=== PATIENT | female | born 1970 | race Caucasian/White ===

== ENCOUNTER 2018-03-26 09:59 | Outpatient (CLI) | payer OTHER ==
--- NOTE | 2018-03-26 12:01 | Mammography Report ---
BILATERAL DIAGNOSTIC MAMMOGRAPHY AND BILATERAL BREAST ULTRASOUND: 03/26/2018 HISTORY: Palpable lump anterior bilateral breasts. COMPARISON: 02/20/2016, 08/19/2015, 01/27/2015, 01/18/2015 and 09/17/2011. TECHNIQUE: Bilateral digital CC and MLO projections with additional implant displaced projections. FINDINGS: The breast tissue is heterogeneously dense. Compared to the prior studies, the patient has new bilateral breast implants. Faint nodular densities in both breasts are similar to previous. No suspicious microcalcifications, architectural distortion, skin thickening or other interval change. BILATERAL BREAST ULTRASOUND: TECHNIQUE: Real-time scanning by the assistant infant toddler teacher in the area of palpable abnormality with saved static images reviewed. FINDINGS: In the left breast 2:30 position anterior periareolar region is a 7 x 4 x 8 mm anechoic well-circumscribed lesion consistent with a cyst. This accounts for the palpable finding. In the right breast 9 o'clock periareolar anterior region is a 6 x 4 x 6 mm round anechoic lesion with posterior shadowing consistent with a cyst. This accounts for the palpable finding. IMPRESSION: BENIGN. BI-RADS CATEGORY 2 - BENIGN FINDING BILATERALLY. SUGGEST RETURN TO ROUTINE SCREENING IN 12 MONTHS. STANDARD QUALIFYING STATEMENTS: 1. This examination was reviewed with the aid of Computer-Aided Detection (CAD) . 2. A negative or benign imaging report should not delay biopsy if clinically suspicious findings are present. Consider surgical consultation if warranted. More than 5 % of cancers are not identified by imaging. 3. Dense breasts may obscure an underlying neoplasm. TD: 03/26/2018 11:16 REVISED: ORIG. SIGNED 03/26/2018@1311; ORDERS LINKED 05/05/18 JLMerle CRISTIAND
== END 2018-03-26 10:00 | disposition home or self-care (01) ==
LOC: DI 09:59
PROVIDERS: ATTEND Family Medicine
DX: N63.0 Unspecified lump in unspecified breast (principal); N64.89 Other specified disorders of breast; Z98.82 Breast implant status
CPT/HCPCS: 76642; 77066

== ENCOUNTER 2018-10-10 08:00 | Outpatient (CLI) | payer OTHER ==
[2018-10-16 08:24] LABS: H. PYLORIS ANTIGEN STL NEGATIVE (Negative)
== END 2018-10-10 23:59 | disposition home or self-care (01) ==
LOC: LAB 08:00
PROVIDERS: ATTEND Physician Assistant Medical
DX: R10.13 Epigastric pain (principal)
CPT/HCPCS: 87338

== ENCOUNTER 2019-12-15 14:01 | Outpatient (CLI) | payer BC | END 2019-12-15 14:02 | disposition home or self-care (01) | LOC: NS 14:01 | PROVIDERS: ATTEND Physician Assistant Medical | DX: Z71.3 Dietary counseling and surveillance (principal); K58.9 Irritable bowel syndrome, unspecified | CPT/HCPCS: 97802 ==

== ENCOUNTER 2021-01-11 12:52 | Outpatient (CLI) | payer OTHER ==
--- NOTE | 2021-01-12 07:47 | Mammography Report ---
BILATERAL DIGITAL SCREENING MAMMOGRAM WITH AUGMENTATION: 01/11/2021 CLINICAL: Routine screening. Comparison is made to exams dated: 03/26/2018 ultrasound, 03/26/2018 ultrasound, 03/26/2018 mammogram, 02/19 mammogram, 08/19/2015 mammogram, and 08/19/2015 ultrasound - [facility]. The tissue of both breasts is heterogeneously dense. This may lower the sensitivity of mammography. No significant masses, calcifications, or other findings are seen in either breast. There has been no significant interval change. IMPRESSION: NEGATIVE There is no mammographic evidence of malignancy. A 1 year screening mammogram is recommended. This exam was interpreted at Station ID: [id number]. NOTE: For mammograms, a report in lay terms will be sent to the patient. Approximately 15% of breast malignancies will not be visualized mammographically. In the management of a palpable breast mass, a negative mammogram must not discourage biopsy of a clinically suspicious lesion. Electronically Signed By: Nickolas Bolaños M.D., jr/carroll:01/11/2021 15:56:31 ACR BI-RADS Category 1: Negative 3341F PARENCHYMAL PATTERN: (D) - The breast(s) demonstrate(s) heterogeneously dense fibroglandular parenchy ma. BI-RADS CATEGORY: (1) - 1 RECOMMENDATION: (ANNUAL) - Recommend routine annual screening mammography. [id number] 1 year screening LATERALITY: (B)
== END 2021-01-11 12:53 | disposition home or self-care (01) ==
LOC: DI.N 12:52
DX: Z12.31 Encounter for screening mammogram for malignant neoplasm of breast (principal)

== ENCOUNTER 2021-08-09 09:00 | Outpatient (CLI) | payer OTHER | END 2021-08-09 23:59 | disposition home or self-care (01) | LOC: LAB.WCP 09:00 | PROVIDERS: ATTEND Physician Assistant Medical | DX: R05.9 Cough, unspecified (principal); Z20.822 Contact with and (suspected) exposure to COVID-19 ==

== ENCOUNTER 2021-08-09 09:37 | Outpatient (CLI) | payer OTHER ==
--- NOTE | 2021-08-09 10:35 | XRAY Report ---
PROCEDURE: Chest 2 View X-Ray INDICATIONS: COUGH TECHNIQUE: 2 view(s) of the chest. COMPARISON: None. FINDINGS: Surgical changes and devices: None. Lungs and pleura: No pleural effusions or pneumothorax. Lungs are clear. No consolidation. Mediastinum: Mediastinal contours are normal. Heart size is normal. Bones and chest wall: No suspicious bony abnormalities. Soft tissues appear unremarkable. IMPRESSION: No acute cardiopulmonary abnormality. Reviewed by: Mario John MD on 08/09/2021 10:34 AM PDT Approved by: Mario John MD on 08/09/2021 10:34 AM PDT Station ID: [id number]
== END 2021-08-09 09:38 | disposition home or self-care (01) ==
LOC: DI.N 09:37
PROVIDERS: ATTEND Physician Assistant Medical
DX: R05.9 Cough, unspecified (principal)

== ENCOUNTER 2021-12-11 15:15 | Outpatient (CLI) | payer OTHER ==
--- NOTE | 2021-12-11 16:17 | Ultrasound Report ---
PROCEDURE: Head or Neck Soft Tissue INDICATIONS: DYSPHAGIA TECHNIQUE: Real-time scanning was performed of the thyroid gland, with image documentation. COMPARISON: None. FINDINGS: Right: The right thyroid measures 5.4 x 1.5 x 1.9 cm. There is a right superior cystic nodule which measures 0.3 x 0.3 x 0.2 cm. Left: The left thyroid lobe measures 5.3 x 1.4 x 1.6 cm. There is a left superior 0.4 x 0.4 x 0.3 cm solid hypoechoic smoothly marginated nodule without echogenic foci. Isthmus: The isthmus measures 2 mm in diameter. IMPRESSION: Normal sonographic appearance of the thyroid. No suspicious thyroid nodules. No findings to explain d ysphagia. No further follow-up recommended for the small bilateral thyroid nodules. Reviewed by: Ava Stein MD on 12/11/2021 4:16 PM PST Approved by: Ava Stein MD on 12/11/2021 4:16 PM PST Station ID: [id number]
== END 2021-12-11 15:16 | disposition home or self-care (01) ==
LOC: DI 15:15
PROVIDERS: ATTEND Physician Assistant Medical
DX: R13.10 Dysphagia, unspecified (principal)

== ENCOUNTER 2022-11-05 10:41 | Outpatient (CLI) | payer OTHER ==
--- NOTE | 2022-11-06 12:13 | Ultrasound Report ---
LIMITED ULTRASOUND OF LEFT BREAST: 11/05/2022 CLINICAL: Palpable left breast lump. Comparison is made to exams dated: 11/05/2022 mammogram, 01/11/2021 mammogram, 03/26/2018 ultrasound, 03/26/2018 ultrasound, 03/26/2018 mammogram, and 02/20/2016 mammogram - [facility]. Color flow ultrasound of the left breast retroareolar was performed. Hackett scale images of the real- time examination were reviewed. There are two wider than tall oval cysts in the left breast superior medial quadrant anterior depth. These oval cysts are anechoic. These correlate as palpated and with area of clinical concern but we re not definitively seen on the prior mammogram. Color flow imaging demonstrates that there is no va scularity present. IMPRESSION: BENIGN There is no sonographic evidence of malignancy. The multiple wider than tall oval simple cysts in the left breast are benign. Recommend clinical follow up for persistent or worsening symptoms, or development of any clinically s uspicious findings. A 1 year screening mammogram is recommended. Findings and recommendations were conveyed to the patient during today's evaluation. This exam was interpreted at Station ID: [id number]. Electronically Signed By: Vick Potter M.D. aty/:11/05/2022 12:23:23 Ultrasound BI-RADS: 2 Benign BI-RADS CATEGORY: (2) - 2 RECOMMENDATION: (ANNUAL) - Recommend routine annual screening mammography. [id number] 1 year screening LATERALITY: (B)
--- NOTE | 2022-11-06 12:13 | Ultrasound Report ---
LIMITED ULTRASOUND OF RIGHT BREAST: 11/05/2022 CLINICAL: Palpable right breast lump. Comparison is made to exams dated: 11/05/2022 mammogram, 01/11/2021 mammogram, 03/26/2018 ultrasound, 03/26/2018 ultrasound, 03/26/2018 mammogram, and 02/20/2016 mammogram - [facility]. Color flow ultrasound of the right breast retroareolar was performed. Hackett scale images of the real- time examination were reviewed. There is a 0.4 cm x 0.3 cm x 0.4 cm wider than tall oval cyst in the right breast at 10 o'clock anter ior depth. This oval cyst is anechoic. This correlates as palpated and with area of clinical concer n but was not seen on the prior mammogram. Color flow imaging demonstrates that there is no vascular ity present. IMPRESSION: BENIGN There is no sonographic evidence of malignancy. The 0.4 cm x 0.3 cm x 0.4 cm wider than tall oval simple cyst in the right breast is benign. Recommend clinical follow up for persistent or worsening symptoms, or development of any clinically s uspicious findings. A 1 year screening mammogram is recommended. Findings and recommendations were conveyed to the patient during today's evaluation. This exam was interpreted at Station ID: [id number]. Electronically Signed By: Vick Potter M.D. aty/:11/05/2022 12:24:26 Ultrasound BI-RADS: 2 Benign BI-RADS CATEGORY: (2) - 2 RECOMMENDATION: (ANNUAL) - Recommend routine annual screening mammography. [id number] 1 year screening LATERALITY: (B)
--- NOTE | 2022-11-06 12:13 | Mammography Report ---
BILATERAL DIGITAL DIAGNOSTIC MAMMOGRAM 3D/2D WITH AUGMENTATION: 11/05/2022 CLINICAL: Palpable bilateral breast lumps. Comparison is made to exams dated: 01/11/2021 mammogram, 03/26/2018 mammogram, 02/20/2016 mammogram, 07/23 mammogram, 01/27/2015 mammogram, and 01/18/2015 mammogram - [facility]. Both breasts are heterogeneously dense, which may obscure small masses (category c / 51-75% glandular tissue). No significant masses, calcifications, or other findings are seen in either breast. IMPRESSION: INCOMPLETE: NEEDS ADDITIONAL IMAGING EVALUATION The implants have a stable appearance. There is no abnormality seen in the right breast to correspon d with the area of clinical concern and palpable abnormality indicated by triangular marker in the up per outer quadrant, however, an ultrasound is recommended for further evaluation and is scheduled to immediately follow this examination. There are no abnormalities seen in the left breast to correspond with the areas of clinical concern a nd palpable abnormalities indicated by triangular marker at 11 and 12 o'clock, however, an ultrasound is recommended for further evaluation and is scheduled to immediately follow this examination. This exam was interpreted at Station ID: [id number]. NOTE: For mammograms, a report in lay terms will be sent to the patient. Approximately 15% of breast malignancies will not be visualized mammographically. In the management of a palpable breast mass, a negative mammogram must not discourage biopsy of a clinically suspicious lesion. Electronically Signed By: Vick Potter M.D. aty/:11/05/2022 12:17:32 ACR BI-RADS Category 0: Incomplete 3340F PARENCHYMAL PATTERN: (D) - The breast(s) demonstrate(s) heterogeneously dense fibroglandular parmónica rosales. BI-RADS CATEGORY: (0) - 0 Ultrasound [id number] Immediate follow-up LATERALITY: (B)
== END 2022-11-05 10:42 | disposition home or self-care (01) ==
LOC: DI 10:41
PROVIDERS: ATTEND Physician Assistant Medical
DX: N60.01 Solitary cyst of right breast (principal); N60.12 Diffuse cystic mastopathy of left breast

== ENCOUNTER 2023-03-04 05:36 | Outpatient (CLI) | payer OTHER ==
[2023-03-04 05:57] LABS: BASOPHILS # (AUTO) 0.1 10^3/uL (0.0-0.1); BASOPHILS % (AUTO) 1.6 %; EOSINOPHILS # (AUTO) 0.3 10^3/uL (0.0-0.7); HCT - HEMATOCRIT 41.4 % (37.0-47.0); HGB - HEMOGLOBIN 13.5 g/dL (12.0-16.0); LYMPHOCYTES # (AUTO) 1.2 10^3/uL (1.5-3.5); MEAN CORPUSCULAR HEMOGLOBIN 32.7 pg (27.0-31.0); MEAN CORPUSCULAR HGB CONC 32.6 g/dL (32.0-36.0); MEAN CORPUSCULAR VOLUME 100.2 fL (81.0-99.0); MEAN PLATELET VOLUME 9.8 fL (7.9-10.8); MONOCYTES # (AUTO) 0.4 10^3/uL (0.0-1.0); MONOCYTES % (AUTO) 7.3 %; NEUTROPHILS # (AUTO) 3.1 10^3/uL (1.5-6.6); NEUTROPHILS % (AUTO) 61.9 %; PLT - PLATELET COUNT 215 10^3/uL (130-450); RED BLOOD COUNT 4.13 10^6/uL (4.20-5.40); RED CELL DISTRIBUTION WIDTH 12.1 % (12.0-15.0); WHITE BLOOD COUNT 5.1 x10^3/uL (4.8-10.8)
[2023-03-04 06:26] LABS: THYROID STIMULATING HORMONE 2.39 uIU/mL (0.34-5.60)
[2023-03-04 06:32] LABS: ALBUMIN 3.1 g/dL (3.2-5.5); ALBUMIN/GLOBULIN RATIO 0.8 (1.0-2.2); ALKALINE PHOSPHATASE 58 IU/L (42-121); ALT ALANINE AMINOTRANSFERASE 11 IU/L (10-60); AST ASPARTATE AMINOTRANSFERASE 15 IU/L (10-42); BILIRUBIN,TOTAL 0.3 mg/dL (0.2-1.0); BUN - BLOOD UREA NITROGEN 24 mg/dL (6-20); CALCIUM 8.6 mg/dL (8.5-10.3); CARBON DIOXIDE - CO2 26 mmol/L (21-32); CHLORIDE 104 mmol/L (101-111); CHOL/HDL RATIO 2.4 (<4.4); CHOLESTEROL 176 mg/dL; CREATININE 0.9 mg/dL (0.4-1.0); GFR - MDRD 66 (>89); GLUCOSE 116 mg/dL (70-100); HDL CHOLESTEROL 72 mg/dL; LDL CHOLESTEROL,CALCULATED 88 mg/dL; LDL/HDL RATIO 1.2 (<4.4); POTASSIUM 3.7 mmol/L (3.5-5.0); SODIUM 138 mmol/L (135-145); TOTAL PROTEIN 6.9 g/dL (6.7-8.2); TRIGLYCERIDES 80 mg/dL; VLDL CHOLESTEROL 16 mg/dL
== END 2023-03-04 05:37 | disposition home or self-care (01) ==
LOC: LAB 05:36
PROVIDERS: ATTEND Physician Assistant Medical
DX: Z00.00 Encounter for general adult medical examination without abnormal findings (principal)
CPT/HCPCS: 36415; 80053; 80061; 83721; 84443; 85025